=== PATIENT | male | born 2000 | race American Indian/Alaskan Native ===

== ENCOUNTER 2018-08-20 00:51 | Emergency (ER) | payer OTHER ==
--- NOTE | 2018-08-20 04:56 | Emergency Department Report ---
ED Laceration [facility] Chief Complaint: Laceration/Recheck/Suture Stated Complaint: RIGHT ARM INJURY Time Seen by Provider: 08/20/18 04:52 ED Review of Systems ROS: Stated complaint: RIGHT ARM INJURY Other details as noted in HPI ED Past Medical Hx - Past Medical History Previous Medical History?: No - Surgical History Past Surgical History?: Yes Additional Surgical History: Right boxing fracture with pins placed - Social History Smoking Status: Never Smoker Laceration Physical Exam - Exam General: Vital signs noted. No distress. Alert and acting appropriately. Wound Length (cm): 3 Laceration Location: Upper Extremity (rt forearm) Laceration Exam: Yes Normal Distal CMS, No Foreign Body, No Exposed Tendon, Vessel, or Nerve, No Tendon Injury ED Course Vital Signs 08/20/18 08/20/18 00:58 01:11 Temperature 99.2 F 99.2 F Pulse Rate 81 86 Respiratory 18 18 Rate Blood Pressure 136/83 136/83 O2 Sat by Pulse 99 98 Oximetry - Laceration /Wound Repair Right Arm Wound Location: upper extremity Wound Length (cm): 3 Wound's Depth, Shape: superficial Wound Explored: no foreign body removed Irrigated w/ Saline (ccs): 60 Betadine Prep?: Yes Anesthesia: 1% Lidocaine Volume Anesthetic (ccs): 3 Wound Debrided: minimal Wound Repaired With: sutures Suture Size/Type: 3:0, proline Number of Sutures: 5 Sterile Dressing Applied?: Yes Progress: Patient tolerated procedure well ED Medical Decision Making - Medical Decision Making Patient has been evaluated by this provider in fast track. Patient has a 3 cm laceration to the right forearm will be to repair with sutures. Patient be discharged with instructions to keep wound clean and dry. Return back to the emergency room in 7-10 days return sooner if there is any signs of infection such as swelling redness or purulent discharge. Patient verbalized understanding Critical care attestation.: If time is entered above; I have spent that time in minutes in the direct care of this critically ill patient, excluding procedure time. ED Disposition Clinical Impression: Laceration of forearm, left Qualifiers: Encounter type: initial encounter Qualified Code(s): S51.812A - Laceration without foreign body of left forearm, initial encounter Disposition: TO HOME OR SELFCARE Is pt being admited?: No Does the pt Need Aspirin: No Condition: Stable Instructions: Suture Care (ED), Laceration (ED) Additional Instructions: Please take [id number] Tylenol or Motrin for pain management. Please return back to the emergency room in 7-10 days for suture removal. Return sooner if there is any signs of infection such as swelling redness or purulent discharge. Referrals: WILFRIDO ZAPATA MD [Primary Care Provider] - 3-5 Days Forms: Accompanied Note, Work/School Release Form(ED)
== END 2018-08-20 05:06 | disposition home or self-care (01) ==
LOC: ED 00:51
CPT/HCPCS: 99282

== ENCOUNTER 2018-08-31 15:35 | Emergency (ER) | payer OTHER ==
--- NOTE | 2018-08-31 16:19 | Emergency Department Report ---
Suture/Staple Removal - [facility] Chief Complaint: Laceration/Recheck/Suture Stated Complaint: REMOVAL STITCHS Time Seen by Provider: 08/31/18 16:11 When Sutures or Delta Placed: 8-10 Days Ago Wound Location: right forearm ED Review of Systems ROS: Stated complaint: REMOVAL STITCHS Other details as noted in HPI Constitutional: denies: chills, fever Eyes: denies: eye pain, eye discharge, vision change ENT: denies: ear pain, throat pain Respiratory: denies: cough, shortness of breath, wheezing Cardiovascular: denies: chest pain, palpitations Endocrine: no symptoms reported Gastrointestinal: denies: abdominal pain, nausea, diarrhea Genitourinary: denies: urgency, dysuria Musculoskeletal: denies: back pain, joint swelling, arthralgia Skin: denies: rash, lesions Neurological: denies: headache, weakness, paresthesias Psychiatric: denies: anxiety, depression Hematological/Lymphatic: denies: easy bleeding, easy bruising ED Past Medical Hx - Past Medical History Previous Medical History?: No - Surgical History Past Surgical History?: Yes Additional Surgical History: Right boxing fracture with pins placed - Social History Smoking Status: Never Smoker Substance Use Type: Marijuana Suture Removal Exam - Exam General: Vital signs noted. No distress. Alert and acting appropriately. Wound: No Pathologic Erythema, No Tenderness, No Drainage, No Pus, No Wound Dehiscence Other Systems: All other systems reviewed and are unremarkable. ED Course Vital Signs 08/31/18 15:38 Temperature 98.0 F Pulse Rate 62 Respiratory 16 Rate Blood Pressure 130/77 O2 Sat by Pulse 100 Oximetry - Reevaluation(s) Reevaluation #1: 08/31/18 16:18 Patient is speaking in full sentences with no signs of distress noted. ED Recheck MDM - Medical Decision Making This is a 18-year-old male that presents with suture removal. She is stable and was examined by me. Total of 5 sutures has been removed and patient tolerated well. No signs of wound dehiscence, drainage, or cellulitis. Patient was referred to Follow-up with a primary care doctor in 3-5 days or if symptoms worsen and continue return to emergency room as soon as possible. At time of discharge, the patient does not seem toxic or ill in appearance. No acute signs of distress noted. Patient agrees to discharge treatment plan of care. No further questions noted by the patient. Critical care attestation.: If time is entered above; I have spent that time in minutes in the direct care of this critically ill patient, excluding procedure time. ED Disposition Clinical Impression: Encounter for removal of sutures Disposition: TO HOME OR SELFCARE Is pt being admited?: No Does the pt Need Aspirin: No Condition: Stable Instructions: Suture Removal (ED) Additional Instructions: Follow-up with a primary care doctor in 3-5 days or if symptoms worsen and continue return to emergency room as soon as possible. Referrals: PRIMARY CARE, [Referring] - 3-5 Days KERRI WHITTEN MD [Staff Physician] - 3-5 Days [facility] [Outside] - 3-5 Days [facility] [Outside] - 3-5 Days Forms: Work/School Release Form(ED)
== END 2018-08-31 16:32 | disposition home or self-care (01) ==
LOC: ED 15:35

== ENCOUNTER 2019-05-04 03:48 | Emergency (ER) | payer OTHER ==
[2019-05-04 03:54] VITALS: BP 133/73
[2019-05-04] MEDS ORDERED: NEOMY 3.5 MG/BACIT 400 UNITS/POLY B 5000 UNITS/GM OINT PACKET TP ONE ×3 (04:20→04:41)
[2019-05-04] MEDS ORDERED: ONDANSETRON 4 MG ODT TAB PO ONE (04:20)
[2019-05-04] MEDS ORDERED: IBUPROFEN 600 MG TAB PO ONE (04:20)
[2019-05-04] MEDS ORDERED: HYDROcodone/ACETAMINOPHEN 7.5-325MG TAB PO ONE (04:20)
[2019-05-04] MEDS ORDERED: TETANUS,DIPH,PERTUSS(ACELL) VACCINE 0.5 ML SYRINGE IM ONE (04:21)
--- NOTE | 2019-05-04 04:35 | Emergency Department Report ---
ED Lower Extremity HPI - General Chief Complaint: Extremity Injury, Lower Stated Complaint: DOG BITE RIGHT LEG Source: patient Mode of arrival: Ambulatory Limitations: No Limitations - History of Present Illness Initial Comments: Patient is a 19-year-old -[place] male with no past medical history who presents to the ED with complaint of acute onset persistent severe right lower leg pain due to bleeding puncture wounds after his own dogs attacked and bit him on the right lower leg about one hour ago. Patient states that the dogs were fighting and he came in between them to separate them and in the process one of the dogs may have bit him on the right lower leg. Patient states that he is not up-to-date with his tetanus vaccinations. Patient states that the dogs are fully vaccinated and up-to-date with vaccinations. Patient denies numbness or tingling or weakness of right lower leg, dizziness, nausea, vomiting, syncope or low back pain. MD Complaint: leg injury (right lower leg puncture wounds from dog bite) -: Sudden, hour(s) (1) Injury: Leg: Right (Right lower leg dog bite puncture wounds) Type of Injury: laceration (Puncture wounds from dog bites), puncture wound Place: home Severity: severe Severity scale (0 -10): 10 Improves With: nothing Worsens With: nothing Context: direct blow, other (Dog bite puncture wounds on right lower leg) Associated Symptoms: able to partially bear weight. denies: swelling, numbness, tingling, unable to bear weight, ambulatory - Related Data Previous Rx's Medication Instructions Recorded Last Taken Type Acetaminophen/Codeine [Tylenol 1 tab PO Q6H PRN #12 tab 05/04/19 Unknown Rx /Codeine # 3 tab] Amoxicillin/Potassium Clav 1 each PO Q12H #20 tablet 05/04/19 Unknown Rx [Augmentin 875-125 Tablet] Ibuprofen [Motrin] 600 mg PO Q8H PRN #24 tablet 05/04/19 Unknown Rx Allergies Allergy/AdvReac Type Severity Reaction Status Date / Time No Known Allergies Allergy Unverified 08/20/18 01:08 ED Review of Systems ROS: Stated complaint: DOG BITE RIGHT LEG Other details as noted in HPI Constitutional: denies: chills, fever Eyes: denies: eye pain, eye discharge, vision change ENT: denies: ear pain, throat pain Respiratory: denies: cough, shortness of breath, wheezing Cardiovascular: denies: chest pain, palpitations Endocrine: no symptoms reported Gastrointestinal: denies: abdominal pain, nausea, diarrhea Genitourinary: denies: urgency, dysuria Musculoskeletal: arthralgia (right lower leg pain from puncture wounds of dog bites), myalgia. denies: back pain, joint swelling Skin: other (Multiple bleeding painful puncture wounds on right lower leg from dog bites). denies: rash, lesions Neurological: denies: headache, weakness, paresthesias Psychiatric: denies: anxiety, depression Hematological/Lymphatic: denies: easy bleeding, easy bruising ED Past Medical Hx - Past Medical History Previous Medical History?: No - Surgical History Past Surgical History?: Yes Additional Surgical History: Right boxing fracture with pins placed - Social History Smoking Status: Current Every Day Smoker Substance Use Type: None - Medications Home Medications: Home Medications Medication Instructions Recorded Confirmed Last Taken Type Acetaminophen/Codeine [Tylenol 1 tab PO Q6H PRN #12 tab 05/04/19 Unknown Rx /Codeine # 3 tab] Amoxicillin/Potassium Clav 1 each PO Q12H #20 tablet 05/04/19 Unknown Rx [Augmentin 875-125 Tablet] Ibuprofen [Motrin] 600 mg PO Q8H PRN #24 tablet 05/04/19 Unknown Rx ED Physical Exam - General Limitations: No Limitations General appearance: alert, in no apparent distress - Head Head exam: Present: atraumatic, normocephalic - Eye Eye exam: Present: normal appearance, PERRL, EOMI Pupils: Present: normal accommodation - ENT ENT exam: Present: normal exam, normal orophraynx, mucous membranes moist, TM's normal bilaterally, normal external ear exam - Neck Neck exam: Present: normal inspection, full ROM. Absent: tenderness, lymphadenopathy - Respiratory Respiratory exam: Present: normal lung sounds bilaterally. Absent: respiratory distress, wheezes, rales, rhonchi, chest wall tenderness, accessory muscle use - Cardiovascular Cardiovascular Exam: Present: regular rate, normal rhythm, normal heart sounds. Absent: systolic murmur, diastolic murmur, rubs, gallop - GI/Abdominal GI/Abdominal exam: Present: soft, normal bowel sounds. Absent: tenderness, hyperactive bowel sounds, hypoactive bowel sounds, organomegaly, bruit - Rectal Rectal exam: Present: deferred - Extremities Exam Extremities exam: Present: normal inspection, tenderness (Palpable right lower leg tenderness from multiple puncture wounds of dog bites), normal capillary refill - Back Exam Back exam: Present: normal inspection, full ROM. Absent: tenderness, CVA tenderness (R), CVA tenderness (L), muscle spasm, paraspinal tenderness, vertebral tenderness - Neurological Exam Neurological exam: Present: alert, oriented X3, CN II-XII intact, normal gait, reflexes normal - Psychiatric Psychiatric exam: Present: normal affect, normal mood - Skin Skin exam: Present: warm, dry, intact, normal color, other (Bleeding severely tender multiple puncture wounds on right lower leg from dog bites). Absent: rash ED Course Vital Signs 05/04/19 03:51 Temperature 98.2 F Pulse Rate 99 H Respiratory 16 Rate Blood Pressure 133/73 O2 Sat by Pulse 100 Oximetry - Reevaluation(s) Reevaluation #1: 05/04/19 04:40 This is a 19-year-old male who presented to the ED with severe pain on right lower leg due to multiple puncture wounds from dog bites. In the ED, patient is alert and oriented 3 and is not in distress but appears to be in pain. Patient was given tetanus booster vaccination, also treated for pain. Patient's right lower leg multiple puncture wounds were cleaned thoroughly and Neosporin applied on to the puncture wounds. The right lower leg multiple puncture wounds were then dressed appropriately and the patient discharged home on Augmentin antibiotics to be taken twice a day for 10 days for the right. Patient was advised to return to the ED immediately if symptoms get worse, otherwise follow- up with [facility] in 7-10 days for reevaluation. ED Lower Extremity MDM - Medical Decision Making This is a 19-year-old male who presented to the ED with severe pain on right lower leg due to multiple puncture wounds from dog bites. In the ED, patient is alert and oriented 3 and is not in distress but appears to be in pain. Patient was given tetanus booster vaccination, also treated for pain. Patient's right lower leg multiple puncture wounds were cleaned thoroughly and Neosporin applied on to the puncture wounds. The right lower leg multiple puncture wounds were then dressed appropriately and the patient discharged home on Augmentin antibiotics to be taken twice a day for 10 days for the right. Patient was advised to return to the ED immediately if symptoms get worse, otherwise follow- up with [facility] in 7-10 days for reevaluation. - Differential Diagnosis dog bites; puncture wounds; right lower leg pain Critical care attestation.: If time is entered above; I have spent that time in minutes in the direct care of this critically ill patient, excluding procedure time. ED Disposition Clinical Impression: Dog bite of multiple sites of right lower extremity Qualifiers: Encounter type: initial encounter Qualified Code(s): S81.851A - Open bite, right lower leg, initial encounter; W54.0XXA - Bitten by dog, initial encounter Puncture wound of right lower leg without foreign body Qualifiers: Encounter type: initial encounter Qualified Code(s): S81.831A - Puncture wound without foreign body, right lower leg, initial encounter Disposition: TO HOME OR SELFCARE Is pt being admited?: No Does the pt Need Aspirin: No Condition: Stable Instructions: Puncture Wound (ED), Animal Bite (ED) Additional Instructions: Take medications with food, drink plenty of fluids and follow-up with your primary care physician in 5-7 days for reevaluation. Return to the ED immediately if symptoms get worse. Prescriptions: Amoxicillin/Potassium Clav [Augmentin 875-125 Tablet] 1 each PO Q12H #20 tablet Ibuprofen [Motrin] 600 mg PO Q8H PRN #24 tablet PRN Reason: Pain Acetaminophen/Codeine [Tylenol /Codeine # 3 tab] 1 tab PO Q6H PRN #12 tab PRN Reason: Pain , Severe (7-10) Referrals: [facility] [Outside] - 7-10 days Time of Disposition: 04:37 Print Language: LATVIAN
[2019-05-04] MEDS ORDERED: NEOMY 3.5 MG/BACIT 400 UNITS/POLY B 5000 UNITS/GM OINT PACKET TP SCH (08:00)
== END 2019-05-04 04:40 | disposition home or self-care (01) ==
LOC: ED 03:48
DX: S81.831A Puncture wound without foreign body, right lower leg, initial encounter (principal); Z98.890 Other specified postprocedural states; F17.200 Nicotine dependence, unspecified, uncomplicated; Z79.899 Other long term (current) drug therapy; W54.0XXA Bitten by dog, initial encounter; Y93.89 Activity, other specified; Y92.89 Other specified places as the place of occurrence of the external cause; Y99.8 Other external cause status
CPT/HCPCS: 90471; 90715; 99283; A6250; Q0162

== ENCOUNTER 2019-09-12 12:11 | Emergency (ER) | payer OTHER ==
[2019-09-12 13:19] VITALS: BP 123/103
--- NOTE | 2019-09-12 13:22 | Emergency Department Report ---
Upper Respiratory HPI - HPI Chief Complaint: Upper Respiratory Infection Stated Complaint: HEADACHE/SINUS/CHEST PAIN Time Seen by Provider: 09/12/19 13:17 Duration: 1 week URI Symptoms: Rhinorrhea: Yes, Sore Throat: No, Ear Pain: No, Cough: Yes, Shortness of Breath: No, Sick Contacts: No, Unable to Take Fluids: No, Urine Output Abnormal: No, Listless Behavior: No Other History: This is a 19-year-old male nontoxic well in [facility] with no signs of distress presents with dry nonproductive cough x1 week. Patient denies any chest pain, shortness of breathe, fever, chills, nausea, vomiting, headache, stiff neck, abdominal pain, numbness or tingling. Patient denies any recent travels, long car rides, or recent hospital stays. Denies any allergies or significant PMH. - Home Meds and Allergies Home Medications: Previous Rx's Medication Instructions Recorded Last Taken Type Acetaminophen/Codeine [Tylenol 1 tab PO Q6H PRN #12 tab 05/04/19 Unknown Rx /Codeine # 3 tab] Amoxicillin/Potassium Clav 1 each PO Q12H #20 tablet 05/04/19 Unknown Rx [Augmentin 875-125 Tablet] Ibuprofen [Motrin] 600 mg PO Q8H PRN #24 tablet 05/04/19 Unknown Rx Azithromycin [Zithromax Z-LUCI] 250 mg PO DAILY #6 tablet 09/12/19 Unknown Rx Benzonatate [Tessalon Perles] 100 mg PO Q8HR PRN #20 capsule 09/12/19 Unknown Rx Allergies/Adverse Reactions: Allergies Allergy/AdvReac Type Severity Reaction Status Date / Time No Known Allergies Allergy Unverified 08/20/18 01:08 ED Review of Systems ROS: Stated complaint: HEADACHE/SINUS/CHEST PAIN Other details as noted in HPI Constitutional: denies: chills, fever Eyes: denies: eye pain, eye discharge, vision change ENT: congestion. denies: ear pain, throat pain Respiratory: cough. denies: shortness of breath, wheezing Cardiovascular: denies: chest pain, palpitations Endocrine: no symptoms reported Gastrointestinal: denies: abdominal pain, nausea, diarrhea Genitourinary: denies: urgency, dysuria Musculoskeletal: denies: back pain, joint swelling, arthralgia Skin: denies: rash, lesions Neurological: denies: headache, weakness, paresthesias Psychiatric: denies: anxiety, depression Hematological/Lymphatic: denies: easy bleeding, easy bruising ED Past Medical Hx - Past Medical History Previous Medical History?: No - Surgical History Past Surgical History?: Yes Additional Surgical History: Right boxing fracture with pins placed - Social History Smoking Status: Current Every Day Smoker Substance Use Type: None - Medications Home Medications: Home Medications Medication Instructions Recorded Confirmed Last Taken Type Acetaminophen/Codeine [Tylenol 1 tab PO Q6H PRN #12 tab 05/04/19 Unknown Rx /Codeine # 3 tab] Amoxicillin/Potassium Clav 1 each PO Q12H #20 tablet 05/04/19 Unknown Rx [Augmentin 875-125 Tablet] Ibuprofen [Motrin] 600 mg PO Q8H PRN #24 tablet 05/04/19 Unknown Rx Azithromycin [Zithromax Z-LUCI] 250 mg PO DAILY #6 tablet 09/12/19 Unknown Rx Benzonatate [Tessalon Perles] 100 mg PO Q8HR PRN #20 capsule 09/12/19 Unknown Rx ED Bronchiolitis Physical Exam - Exam General: Vital signs noted. No distress. Alert and acting appropriately. HEENT: No Pharyngeal Erythema, No Conjuctival Injection, No Dry Mucous Membranes, No Rhinorrhea Ear: Neither TM Bulge, Neither TM Erythema, Neither EAC Discharge Neck: No Adenopathy, No Rigidity Lungs: Yes Clear Lung Sounds, Yes Good Air Exchange, Yes Cough, No Wheezes, No Stridor, No Nasal Flaring, No Retractions, No Use of Accessory Muscles Heart: Yes Regular, No Murmur Abdomen: Yes Normal Bowel Sounds, No Tenderness, No Peritoneal Signs Skin: No Rash, No Eczema Neurologic: Alert and oriented, no deficits. Musculoskeletal: Unremarkable. ED Physical Exam - General Limitations: No Limitations ED Course - Reevaluation(s) Reevaluation #1: 09/12/19 13:19 Patient is speaking in full sentences with no signs of distress noted. ED Medical Decision Making - Medical Decision Making 19-year-old male that presents with bronchitis like symptoms. Patient is stable and was examined by me. Will treat empirecally with Zpack due to continuing and worsening of symptoms. Vital signs are stable. Patient was instructed to Follow-up with a primary care doctor in 3-5 days or if symptoms worsen and continue return to emergency room as soon as possible. At time of discharge, the patient does not seem toxic or ill in appearance. No acute signs of distress noted. Patient agrees to discharge treatment plan of care. No further questions noted by the patient. Critical care attestation.: If time is entered above; I have spent that time in minutes in the direct care of this critically ill patient, excluding procedure time. ED Disposition Clinical Impression: Bronchitis Disposition: [id number] TO HOME OR SELFCARE Is pt being admited?: No Does the pt Need Aspirin: No Condition: Stable Instructions: Acute Bronchitis (ED) Additional Instructions: Follow-up with a primary care doctor in 3-5 days or if symptoms worsen and continue return to emergency room as soon as possible. Prescriptions: Benzonatate [Tessalon Perles] 100 mg PO Q8HR PRN #20 capsule PRN Reason: Cough Azithromycin [Zithromax Z-LUCI] 250 mg PO DAILY #6 tablet Referrals: PRIMARY CAREMD [Referring] - 3-5 Days AMELIA PINTO MD [Staff Physician] - 3-5 Days [facility] [Outside] - 3-5 Days Forms: Work/School Release Form(ED)
== END 2019-09-12 14:15 | disposition home or self-care (01) ==
LOC: ED 12:11
DX: J40 Bronchitis, not specified as acute or chronic (principal); F17.200 Nicotine dependence, unspecified, uncomplicated; Z79.899 Other long term (current) drug therapy